=== PATIENT | male | born 1995 | race Caucasian/White ===

== ENCOUNTER 2018-06-09 10:59 | Emergency (ER) | payer MEDICAID, OTHER ==
[~2018-06-09] VITALS: Ht 172.7 cm; Wt 63.9 kg
[~2018-06-09 10:59] MED LIST: CEPH-571 PO
[2018-06-09 11:10] VITALS: BP 123/75
[2018-06-09] MEDS ORDERED: AMOX-422 PO (12:20)
[2018-06-09] MEDS ORDERED: CHLO473M3 PO (12:20)
[2018-06-09] MEDS ORDERED: TRAM50TA2 PO (12:20)
== END 2018-06-09 12:45 | disposition home or self-care (01) ==
LOC: ER 11:00
DX: K04.7 Periapical abscess without sinus (principal); Z79.2 Long term (current) use of antibiotics
CPT/HCPCS: 99283

== ENCOUNTER 2018-08-15 10:41 | Emergency (ER) | payer OTHER ==
[~2018-08-15] VITALS: Ht 172.7 cm; Wt 72.0 kg
[~2018-08-15 10:41] MED LIST changes: +CHLO473M3 PO
[2018-08-15 11:21] VITALS: BP 104/60
== END 2018-08-15 12:59 | disposition home or self-care (01) ==
LOC: ER 10:41
DX: S70.01XA Contusion of right hip, initial encounter (principal); T14.8XXA Other injury of unspecified body region, initial encounter; F17.200 Nicotine dependence, unspecified, uncomplicated; Z79.2 Long term (current) use of antibiotics; Z79.899 Other long term (current) drug therapy; V49.9XXA Car occupant (driver) (passenger) injured in unspecified traffic accident, initial encounter; Y93.89 Activity, other specified; Y92.410 Unspecified street and highway as the place of occurrence of the external cause; Y99.8 Other external cause status
CPT/HCPCS: 99281

== ENCOUNTER 2021-11-17 12:36 | Emergency (ER) | payer SELFPAY ==
[~2021-11-17] VITALS: Ht 175.3 cm; Wt 70.0 kg
[2021-11-17 12:41] VITALS: BP 121/67
[2021-11-17] MEDS ORDERED: LIDOcaine 1% 30ml preserv. free vial SQ STA (13:18)
[2021-11-17] MEDS ORDERED: bacitracin 15gm ointment TP ONE (13:20)
[2021-11-17] MEDS ORDERED: TETanus/Pertussis (Acell)/Diphther VAC/PF (Tdap-Adult) 0.5ml syringe IMVAC ONE (13:20)
[2021-11-17] MEDS ORDERED: CEPH500C2 PO (14:09)
== END 2021-11-17 14:19 | disposition home or self-care (01) ==
LOC: ER 12:38
DX: L03.012 Cellulitis of left finger (principal); Z20.3 Contact with and (suspected) exposure to rabies; Z79.2 Long term (current) use of antibiotics; Z79.899 Other long term (current) drug therapy
CPT/HCPCS: 26010; 90471; 90715; 99283

== ENCOUNTER 2022-01-18 03:46 | Emergency (ER) | payer SELFPAY ==
[~2022-01-18] VITALS: Ht 172.7 cm; Wt 72.7 kg
[2022-01-18 03:52] VITALS: BP 117/76
[2022-01-18] MEDS ORDERED: naproxen 500mg tablet PO ONE (04:40)
[2022-01-18] MEDS ORDERED: diphenhydrAMINE 25mg capsule PO ONE (04:40)
== END 2022-01-18 05:11 | disposition home or self-care (01) ==
LOC: ER 03:47
DX: J06.9 Acute upper respiratory infection, unspecified (principal); H92.03 Otalgia, bilateral; H61.23 Impacted cerumen, bilateral
CPT/HCPCS: 99283; Q0163

== ENCOUNTER 2022-01-18 15:53 | Emergency (ER) | payer SELFPAY ==
[~2022-01-18] VITALS: Ht 172.7 cm; Wt 72.7 kg
[2022-01-18 17:46] VITALS: BP 125/78
== END 2022-01-18 18:52 | disposition home or self-care (01) ==
LOC: ER 15:54
DX: H61.23 Impacted cerumen, bilateral (principal)
CPT/HCPCS: 69209; 99282

== ENCOUNTER 2022-01-21 12:41 | Emergency (ER) | payer SELFPAY ==
[~2022-01-21] VITALS: Ht 172.7 cm; Wt 72.7 kg
[2022-01-21 13:03] VITALS: BP 135/82
--- NOTE | 2022-01-21 13:50 | NUR ---
Patient seen, assessed and given verbal discharge instructions by provider.
== END 2022-01-21 13:54 | disposition home or self-care (01) ==
LOC: ER 12:42
DX: H65.93 Unspecified nonsuppurative otitis media, bilateral (principal); Z87.81 Personal history of (healed) traumatic fracture
CPT/HCPCS: 99282

== ENCOUNTER 2022-04-13 18:50 | Emergency (ER) | payer MEDICAID ==
[~2022-04-13] VITALS: Ht 172.7 cm; Wt 68.0 kg
[~2022-04-13 18:50] MED LIST changes: +LIDOcaine 1% 30ml preserv. free vial ONE
[2022-04-13 20:09] VITALS: BP 115/75
[2022-04-13] MEDS ORDERED: LIDOcaine 1% W/epiNEPHrine 1:200,000 10ml vial IJ ONE (20:25)
[2022-04-13] MEDS ORDERED: bacitracin 15gm ointment TP ONE (20:25)
[2022-04-13] MEDS ORDERED: LIDOcaine 1% W/epiNEPHrine 1:100,000 20ml vial SQ ONE (20:55)
[2022-04-13] MEDS: TETanus/Pertussis (Acell)/Diphther VAC/PF (Tdap-Adult) 0.5ml syringe IMVAC ONE ×2 (20:57→21:00)
[2022-04-13] MEDS ORDERED: sulfamethoxazole/trimethoprim DS (800/160mg) tablet PO ONE (21:00)
[2022-04-13] MEDS ORDERED: SULF1TAB45 PO (21:00)
== END 2022-04-13 21:42 | disposition home or self-care (01) ==
LOC: ER 18:51
DX: L02.611 Cutaneous abscess of right foot (principal); Z87.81 Personal history of (healed) traumatic fracture; Z79.899 Other long term (current) drug therapy
CPT/HCPCS: 10060; 73630; 99283; J3490; 90715

== ENCOUNTER 2022-04-16 09:35 | Emergency (ER) | payer MEDICAID ==
[~2022-04-16] VITALS: Ht 180.3 cm; Wt 70.5 kg
[~2022-04-16 09:35] MED LIST changes: -LIDOcaine 1% 30ml preserv. free vial ONE; +SULF1TAB45 PO
[2022-04-16 09:45] VITALS: BP 111/64
== END 2022-04-16 10:34 | disposition home or self-care (01) ==
LOC: ER 09:35
DX: S60.221A Contusion of right hand, initial encounter (principal); F17.200 Nicotine dependence, unspecified, uncomplicated; F12.90 Cannabis use, unspecified, uncomplicated; Z56.0 Unemployment, unspecified; Z87.81 Personal history of (healed) traumatic fracture; Z79.2 Long term (current) use of antibiotics; Z79.899 Other long term (current) drug therapy; X58.XXXA Exposure to other specified factors, initial encounter; Y93.89 Activity, other specified; Y92.89 Other specified places as the place of occurrence of the external cause; Y99.8 Other external cause status
CPT/HCPCS: 99282

== ENCOUNTER 2022-04-25 11:57 | Emergency (ER) | payer MEDICAID ==
[~2022-04-25] VITALS: Ht 177.8 cm; Wt 70.5 kg
[~2022-04-25 11:57] MED LIST changes: -SULF1TAB45 PO
[2022-04-25 12:25] VITALS: BP 104/51
[2022-04-25] MEDS ORDERED: TETanus/Pertussis (Acell)/Diphther VAC/PF (Tdap-Adult) 0.5ml syringe IMVAC ONE (14:20)
[2022-04-25] MEDS ORDERED: LIDOcaine 1% W/epiNEPHrine 1:200,000 10ml vial IJ ONE (14:20)
[2022-04-25] MEDS ORDERED: DOXYCYCLINE 100MG CAPSULE PO STA (14:20)
[2022-04-25] MEDS ORDERED: DOXY-411 PO ×3 (14:26→15:04)
[2022-04-25] MEDS ORDERED: LIDOcaine 1% W/epiNEPHrine 1:100,000 20ml vial IJ ONE (14:35)
[2022-04-25] MEDS ORDERED: naproxen 500mg tablet PO ONE (14:40)
== END 2022-04-25 15:10 | disposition home or self-care (01) ==
LOC: ER 11:58
DX: L03.011 Cellulitis of right finger (principal); L03.012 Cellulitis of left finger; F12.10 Cannabis abuse, uncomplicated; Z87.81 Personal history of (healed) traumatic fracture
CPT/HCPCS: 10060; 99283; J3490; 90715

== ENCOUNTER 2022-05-16 08:20 | Emergency (ER) | payer MEDICAID ==
[~2022-05-16] VITALS: Ht 177.8 cm; Wt 75.0 kg
[~2022-05-16 08:20] MED LIST changes: +DOXY-411 PO
[2022-05-16 08:26] VITALS: BP 105/50
[2022-05-16] MEDS ORDERED: SULF1TAB49 PO (09:59)
== END 2022-05-16 10:06 | disposition home or self-care (01) ==
LOC: ER 08:21
DX: L02.414 Cutaneous abscess of left upper limb (principal); F12.90 Cannabis use, unspecified, uncomplicated; Z59.00 Homelessness unspecified; Z87.81 Personal history of (healed) traumatic fracture; Z79.2 Long term (current) use of antibiotics; Z79.899 Other long term (current) drug therapy
CPT/HCPCS: 10060; 99283